=== PATIENT | female | born 1930 | race Caucasian/White ===

== ENCOUNTER 2017-02-16 00:55 | Inpatient (IN) | payer MEDICARE, BC ==
[~2017-02-16] VITALS: Ht 170.2 cm; Wt 76.6 kg
[2017-02-16] VITALS (24 sets, daily range): BP systolic 72–103; BP diastolic 35–64
[~2017-02-16 00:55] MED LIST: ACCUPRIL10 MG PO; ALBUTEROL S2.5 MG/.5 IN; ALLEGRA180 M1 PO; ALLEGRA180 MG OR; ANTIVERT OR; BACTRIM DS1 TAB PO; BISACODYL5 MG PO; CALCIUM500 MG OR; CETIRIZINE10 MG PO; CIPRO500 MG PO; CIPROFLOXACN500 MG PO; COUMADIN4 MG PO; COUMADIN5 MG OR; COUMADIN7.5 MG OR; COZAAR25 MG PO; CYCLOBENZAPR10 MG PO; DOCUSATE CAL240 MG PO; DULCOLAX5 MG OR; FERRAPLUS 90 PO; FLUARIX QUADRIV1 IN1 IM; FLUARIX QUADRIV1 INJ IM; FLUZONE SPLT1 M1 IM; FLUZONE1 M1 IM; FOLIC ACID800 MCG OR; FOSAMAX5 MG OR; FUROSEMIDE40 MG PO; GABAPENTIN100 MG PO; GABAPENTIN300 MG PO; IRON325 M1 PO; K-DUR/KLOR-CON10 MEQ PO; KEFLEX500 MG PO; KLOR-CON 1010 MEQ PO; LASIX 20 MG TAB20 MG PO; LASIX 20 MG20 MG/TAB PO; LASIX 40 MG TAB40 MG; LASIX 40 MG TAB40 MG PO; LEVAQUIN500 MG PO; LEVOTHYROXIN100 MC1 PO; LEVOTHYROXIN112 MC1 PO; LEVOTHYROXIN125 MC1 PO; LEVOTHYROXIN125 MCG PO; LEVOTHYROXIN150 MC1 PO; LEVOTHYROXIN50 MC1 PO; LEVOXYL125 MCG PO; LEVOXYL137 MCG OR; LIDODERM5 % EX; LIPITOR20 MG PO; LORTAB 5/3255 MG PO; LOSARTAN POT50 MG PO; LUMIGAN0.01 % OP; MAGNESIUM500 M3 PO; MECLIZINE25 MG PO; MEDDOSEPAK PO; MELATONIN5 MG PO; METOPROLOL50 MG OR; MIRALAX3350 NF PO; NEURONTIN100 MG PO; NORVASC2.5 MG PO; PAROXETINE HCL10 MG PO; PAROXETINE10 MG PO; PEPCID20 MG PO; PNEUMOVAX 23 IM; POT CHLORIDE10 ME1 PO; POTASSI19 XX; PRILOSEC20 MG/CAP PO; PROAIR HFA IN; RESTORIL15 MG PO; ROBAXIN-750750 MG PO; STOOL SOFTEN1 TAB OR; STOOL SOFTENER100 MG PO; SYMBICORT1 AE1 IN; SYNTHROID150 MCG PO; TEMAZEPAM15 MG PO; TRAMADOL HCL50 MG PO; TRILEPTAL300 M1 OR; TYLENOL # 31 TA1 PO; TYLENOL 500MG TAB PO; VITAMIN B-121000 MC1 OR; VITAMIN B-121000 MCG PO; VITAMIN D2000 UNIT PO; VITAMIN D32000 UNI2 PO; VITAMIN D32000 UNIT OR; WARFARIN SODIUM5 MG PO; WARFARIN5 MG PO; WARFARIN7.5 MG PO; ZANAFLEX2 MG PO; ZANTAC150 M1 PO; ZANTAC150 MG OR; ZANTAC25 MG OR; ZITHROMAX250 MG PO; [UNRECOGNIZED DRUG - REMARK] PO
[2017-02-16 01:21] LABS: HEMATOCRIT 35.4 % (37.0-47.0); HEMOGLOBIN 11.6 g/dl (12.0-16.0); IMMATURE GRANULOCYTES 0.3 % (0.0-1.0); MEAN CELL VOLUME 103.2 fL CALC (80.0-100.0); MEAN CORPUSCULAR HGB 33.8 pG CALC (26.0-32.0); MEAN CORPUSCULAR HGB CONC 32.8 g/L CALC (32.0-36.0); NEUT# 8.93 thou/uL (2.00-7.15); RED BLOOD COUNT 3.43 mill/uL (4.20-5.60); RED CELL DISTRI WIDTH 15.4 % (11.5-15.5)
[2017-02-16 01:29] LABS: ALBUMIN 3.1 g/dL (3.2-5.0); ALKALINE PHOSPHATASE 64 u/l (38-126); ANION GAP 13 (6-22 (CALC)); BILIRUBIN, TOTAL 2.5 mg/dL (0.0-1.4); BUN 21 mg/dL (8-23); BUN/CREATININE RATIO 25 (12-20 (CALC)); CALCIUM 8.3 mg/dL (8.4-10.2); CARBON DIOXIDE 26 mmol/l (22-30); CHLORIDE 106 mmol/l (95-108); CREATININE 0.8 mg/dL (0.5-1.0); GFR > 60 ML/MIN (>=60 (CALC)); GFR FOR AFR.AMER. > 60 ML/MIN (>=60 (CALC)); GLUCOSE 78 mg/dL (82-115); POTASSIUM 4.1 mmol/l (3.5-5.1); SGOT/AST 23 u/l (9-36); SGPT/ALT 24 u/l (11-66); SODIUM 140 mmol/l (137-146); TOTAL PROTEIN 6.4 g/dL (6.3-8.2)
[2017-02-16] MEDS ORDERED: JANTOVEN3 MG PO (01:39)
[2017-02-16 01:41] LABS: MYOGLOBIN 234 ng/mL (0 - 62)
[2017-02-16 01:42] LABS: URINE BLOOD DIPSTICK TRACE-INTACT (NEGATIVE); URINE CLARITY SLIGHT CLOUDY; URINE COLOR YELLOW; URINE GLUCOSE - DIPSTICK NEGATIVE (NEGATIVE); URINE KETONE TRACE mg/dL (NEGATIVE); URINE LEUK ESTERASE NEGATIVE (NEGATIVE); URINE NITRITE - DIPSTICK NEGATIVE (Negative); URINE PH 5.5 (4.5-8.0); URINE PROTEIN - DIPSTICK 30 mg/dL (NEG-TRACE); URINE SPECIFIC GRAVITY >=1.030
[2017-02-16] MEDS ORDERED: VITAMIN D32000 UNIT PO (01:42)
[2017-02-16] MEDS ORDERED: IRON45 MG PO (01:44)
[2017-02-16 01:46] LABS: URINE BILIRUBIN - DIPSTICK NEGATIVE (NEGATIVE)
[2017-02-16] MEDS ORDERED: PROAIR HFA108 MCG/AC IN (01:46)
[2017-02-16 01:55] LABS: URINE BACTERIA MANY hpf; URINE RBC 0-2 RBC/hpf (0-5); URINE SQUAMOUS EPITHELIAL CELL RARE EPI/hpf (0-FEW)
[2017-02-16 05:10] LABS: ACT PARTIAL THROMBO TIME 37.6 SECONDS (20.0-32.5); INTERNATIONAL NORMALIZED RATIO 2.1 RATIO (0.7-1.3); PROTHROMBIN TIME 24.2 SECONDS (9.0-12.5)
== END 2017-02-16 11:55 | disposition short-term general hospital (02) | DRG 871 ==
LOC: ED 00:55 → ED-I 04:00 → ED 04:33 → ED-I 04:34 → UNDODEPER 10:10 → ED-I 11:55
PROVIDERS: Emergency Medicine; ADMIT Internal Medicine; ATTEND Internal Medicine
PROC: 5A09357 Assistance with Respiratory Ventilation, Less than 24 Consecutive Hours, Continuous Positive Airway Pressure (ICD-10-PCS; principal; 2017-02-16)
DX: A41.9 Sepsis, unspecified organism (principal); I21.4 Non-ST elevation (NSTEMI) myocardial infarction; R65.21 Severe sepsis with septic shock; I50.32 Chronic diastolic (congestive) heart failure; L03.115 Cellulitis of right lower limb; I11.0 Hypertensive heart disease with heart failure; I48.2 Chronic atrial fibrillation; I27.2 Other secondary pulmonary hypertension; G35 Multiple sclerosis; N39.0 Urinary tract infection, site not specified; L03.116 Cellulitis of left lower limb; I25.119 Atherosclerotic heart disease of native coronary artery with unspecified angina pectoris; M19.90 Unspecified osteoarthritis, unspecified site; E03.9 Hypothyroidism, unspecified; D63.8 Anemia in other chronic diseases classified elsewhere; I65.23 Occlusion and stenosis of bilateral carotid arteries; R09.02 Hypoxemia; Z95.0 Presence of cardiac pacemaker; Z95.2 Presence of prosthetic heart valve; Z79.01 Long term (current) use of anticoagulants; Z86.79 Personal history of other diseases of the circulatory system; Z91.81 History of falling; Z87.891 Personal history of nicotine dependence
CPT/HCPCS: J0692; J1650

== ENCOUNTER 2017-03-20 02:57 | Inpatient (IN) | payer MEDICARE, BC ==
[~2017-03-20] VITALS: Ht 167.6 cm; Wt 84.0 kg
[2017-03-20] VITALS (22 sets, daily range): BP systolic 70–96; BP diastolic 30–50
[~2017-03-20 02:57] MED LIST changes: +IRON45 MG PO; +JANTOVEN3 MG PO; -LUMIGAN0.01 % OP; +LUMIGAN0.01 % OU; +PROAIR HFA108 MCG/AC IN; +VITAMIN D32000 UNIT PO
[2017-03-20] MEDS ORDERED: EQ ASPIRIN LOW81 MG PO (03:17)
[2017-03-20] MEDS ORDERED: BREO ELLIPTA 101 INH IN (03:19)
[2017-03-20] MEDS ORDERED: WARFARIN3 MG PO (03:21)
[2017-03-20] MEDS ORDERED: VITAMIN B121000 MCG PO (03:22)
[2017-03-20] MEDS ORDERED: LEVOTHYROXIN137 MCG PO (03:22)
[2017-03-20] MEDS ORDERED: NEXIUM40 M1 PO (03:25)
[2017-03-20] MEDS ORDERED: WARFARIN7.5 MG PO (03:26)
[2017-03-20 03:41] LABS: HEMATOCRIT 27.6 % (37.0-47.0); HEMOGLOBIN 8.8 g/dl (12.0-16.0); IMMATURE GRANULOCYTES 0.5 % (0.0-1.0); MEAN CELL VOLUME 104.9 fL CALC (80.0-100.0); MEAN CORPUSCULAR HGB 33.5 pG CALC (26.0-32.0); MEAN CORPUSCULAR HGB CONC 31.9 g/L CALC (32.0-36.0); NEUT# 14.79 thou/uL (2.00-7.15); RED BLOOD COUNT 2.63 mill/uL (4.20-5.60); RED CELL DISTRI WIDTH 18.1 % (11.5-15.5)
[2017-03-20 03:56] LABS: ALBUMIN 3.4 g/dL (3.2-5.0); ALKALINE PHOSPHATASE 72 u/l (38-126); ANION GAP 11 (6-22 (CALC)); BILIRUBIN, TOTAL 1.5 mg/dL (0.0-1.4); BUN 30 mg/dL (8-23); BUN/CREATININE RATIO 36 (12-20 (CALC)); CALCIUM 8.5 mg/dL (8.4-10.2); CARBON DIOXIDE 28 mmol/l (22-30); CHLORIDE 104 mmol/l (95-108); CREATININE 0.8 mg/dL (0.5-1.0); GFR > 60 ML/MIN (>=60 (CALC)); GFR FOR AFR.AMER. > 60 ML/MIN (>=60 (CALC)); GLUCOSE 89 mg/dL (82-115); POTASSIUM 4.4 mmol/l (3.5-5.1); SGOT/AST 22 u/l (9-36); SGPT/ALT 32 u/l (11-66); SODIUM 139 mmol/l (137-146); TOTAL PROTEIN 7.1 g/dL (6.3-8.2)
[2017-03-20 04:05] LABS: MYOGLOBIN 73 ng/mL (0 - 62)
[2017-03-20 04:22] LABS: INTERNATIONAL NORMALIZED RATIO 1.5 RATIO (0.7-1.3); PROTHROMBIN TIME 16.6 SECONDS (9.0-12.5)
[2017-03-20 05:01] LABS: URINE BILIRUBIN - DIPSTICK NEGATIVE (NEGATIVE); URINE BLOOD DIPSTICK NEGATIVE (NEGATIVE); URINE CLARITY CLEAR; URINE COLOR YELLOW; URINE GLUCOSE - DIPSTICK NEGATIVE (NEGATIVE); URINE KETONE NEGATIVE (NEGATIVE); URINE LEUK ESTERASE NEGATIVE (NEGATIVE); URINE NITRITE - DIPSTICK NEGATIVE (Negative); URINE PH 5.5 (4.5-8.0); URINE PROTEIN - DIPSTICK NEGATIVE (NEG-TRACE); URINE SPECIFIC GRAVITY 1.025
[2017-03-20 09:52] LABS: HEMATOCRIT 22.8 % (37.0-47.0); HEMOGLOBIN 7.2 g/dl (12.0-16.0); IMMATURE GRANULOCYTES 1.2 % (0.0-1.0); MEAN CELL VOLUME 104.6 fL CALC (80.0-100.0); MEAN CORPUSCULAR HGB CONC 31.6 g/L CALC (32.0-36.0); NEUT# 17.48 thou/uL (2.00-7.15); RED BLOOD COUNT 2.18 mill/uL (4.20-5.60)
[2017-03-20 21:49] LABS: URINE BLOOD DIPSTICK LARGE (NEGATIVE); URINE COLOR YELLOW; URINE GLUCOSE - DIPSTICK NEGATIVE (NEGATIVE); URINE KETONE NEGATIVE (NEGATIVE); URINE LEUK ESTERASE TRACE (NEGATIVE); URINE NITRITE - DIPSTICK NEGATIVE (Negative); URINE PROTEIN - DIPSTICK 30 mg/dL (NEG-TRACE); URINE SPECIFIC GRAVITY >=1.030
[2017-03-20 21:49] LABS: HEMOGLOBIN 7.5 g/dl (12.0-16.0); IMMATURE GRANULOCYTES 0.5 % (0.0-1.0); MEAN CELL VOLUME 102.7 fL CALC (80.0-100.0); MEAN CORPUSCULAR HGB 33.5 pG CALC (26.0-32.0); MEAN CORPUSCULAR HGB CONC 32.6 g/L CALC (32.0-36.0); NEUT# 9.63 thou/uL (2.00-7.15); RED BLOOD COUNT 2.24 mill/uL (4.20-5.60); RED CELL DISTRI WIDTH 19.2 % (11.5-15.5)
[2017-03-20 21:51] LABS: URINE BILIRUBIN - DIPSTICK SMALL (NEGATIVE); URINE CLARITY CLOUDY
[2017-03-20 21:55] LABS: URINE RBC TNTC RBC/hpf (0-5); URINE SQUAMOUS EPITHELIAL CELL FEW EPI/hpf (0-FEW)
[2017-03-20 22:09] LABS: ANION GAP 11 (6-22 (CALC)); BUN 38 mg/dL (8-23); BUN/CREATININE RATIO 39 (12-20 (CALC)); CALCIUM 7.5 mg/dL (8.4-10.2); CARBON DIOXIDE 26 mmol/l (22-30); CHLORIDE 103 mmol/l (95-108); GFR 52 ML/MIN (>=60 (CALC)); GFR FOR AFR.AMER. > 60 ML/MIN (>=60 (CALC)); GLUCOSE 96 mg/dL (82-115); POTASSIUM 4.4 mmol/l (3.5-5.1); SODIUM 136 mmol/l (137-146)
[2017-03-21] VITALS (32 sets, daily range): BP systolic 88–134; BP diastolic 36–63
[2017-03-21 08:17] LABS: HEMATOCRIT 29.9 % (37.0-47.0); MEAN CORPUSCULAR HGB 33.1 pG CALC (26.0-32.0); MEAN CORPUSCULAR HGB CONC 33.4 g/L CALC (32.0-36.0); RED BLOOD COUNT 3.02 mill/uL (4.20-5.60); RED CELL DISTRI WIDTH 18.8 % (11.5-15.5)
[2017-03-21 08:44] LABS: ANION GAP 12 (6-22 (CALC)); BUN 36 mg/dL (8-23); BUN/CREATININE RATIO 41 (12-20 (CALC)); CALCIUM 8.2 mg/dL (8.4-10.2); CARBON DIOXIDE 24 mmol/l (22-30); CHLORIDE 105 mmol/l (95-108); CREATININE 0.9 mg/dL (0.5-1.0); GFR 59 ML/MIN (>=60 (CALC)); GFR FOR AFR.AMER. > 60 ML/MIN (>=60 (CALC)); GLUCOSE 91 mg/dL (82-115); POTASSIUM 4.2 mmol/l (3.5-5.1); SODIUM 137 mmol/l (137-146)
[2017-03-21 22:49] LABS: IMMATURE GRANULOCYTES 0.4 % (0.0-1.0); MEAN CELL VOLUME 100.6 fL CALC (80.0-100.0); MEAN CORPUSCULAR HGB 32.5 pG CALC (26.0-32.0); MEAN CORPUSCULAR HGB CONC 32.3 g/L CALC (32.0-36.0); NEUT# 7.85 thou/uL (2.00-7.15); RED BLOOD COUNT 3.08 mill/uL (4.20-5.60); RED CELL DISTRI WIDTH 18.7 % (11.5-15.5)
[2017-03-22] VITALS (26 sets, daily range): BP systolic 75–129; BP diastolic 35–63
[2017-03-22 05:12] LABS: HEMATOCRIT 31.8 % (37.0-47.0); HEMOGLOBIN 10.4 g/dl (12.0-16.0); IMMATURE GRANULOCYTES 0.3 % (0.0-1.0); MEAN CELL VOLUME 100.6 fL CALC (80.0-100.0); MEAN CORPUSCULAR HGB 32.9 pG CALC (26.0-32.0); MEAN CORPUSCULAR HGB CONC 32.7 g/L CALC (32.0-36.0); NEUT# 7.45 thou/uL (2.00-7.15); RED BLOOD COUNT 3.16 mill/uL (4.20-5.60); RED CELL DISTRI WIDTH 18.3 % (11.5-15.5)
[2017-03-22 05:14] LABS: ANION GAP 14 (6-22 (CALC)); BUN 36 mg/dL (8-23); BUN/CREATININE RATIO 43 (12-20 (CALC)); CALCIUM 8.2 mg/dL (8.4-10.2); CARBON DIOXIDE 23 mmol/l (22-30); CHLORIDE 106 mmol/l (95-108); CREATININE 0.8 mg/dL (0.5-1.0); GFR > 60 ML/MIN (>=60 (CALC)); GFR FOR AFR.AMER. > 60 ML/MIN (>=60 (CALC)); GLUCOSE 91 mg/dL (82-115); POTASSIUM 4.1 mmol/l (3.5-5.1); SODIUM 140 mmol/l (137-146)
== END 2017-03-22 14:00 | disposition short-term general hospital (02) | DRG 378 ==
LOC: ED 02:57 → ED-I 05:13 → ED 05:31 → ICU 05:32 → MS2 05:32 → ICU 06:10 → MS2 06:10 → ICU 14:05
PROVIDERS: Emergency Medicine; ADMIT Internal Medicine; ATTEND Internal Medicine
PROC: 30233N1 Transfusion of Nonautologous Red Blood Cells into Peripheral Vein, Percutaneous Approach (ICD-10-PCS; principal; 2017-03-20)
PROC: 30233K1 Transfusion of Nonautologous Frozen Plasma into Peripheral Vein, Percutaneous Approach (ICD-10-PCS; 2017-03-20)
PROC: 30233K1 Transfusion of Nonautologous Frozen Plasma into Peripheral Vein, Percutaneous Approach (ICD-10-PCS; 2017-03-20)
PROC: 0T9B70Z Drainage of Bladder with Drainage Device, Via Natural or Artificial Opening (ICD-10-PCS; 2017-03-20)
DX: K92.2 Gastrointestinal hemorrhage, unspecified (principal); D62 Acute posthemorrhagic anemia; R57.9 Shock, unspecified; R78.81 Bacteremia; E03.9 Hypothyroidism, unspecified; I10 Essential (primary) hypertension; D69.6 Thrombocytopenia, unspecified; I48.2 Chronic atrial fibrillation; M19.90 Unspecified osteoarthritis, unspecified site; Z66 Do not resuscitate; Z95.2 Presence of prosthetic heart valve; Z95.0 Presence of cardiac pacemaker; Z87.891 Personal history of nicotine dependence; Z79.01 Long term (current) use of anticoagulants
CPT/HCPCS: P9016; S0164

== ENCOUNTER 2017-03-30 13:34 | Inpatient (IN) | payer MEDICARE, BC ==
[~2017-03-30] VITALS: Ht 167.6 cm; Wt 85.4 kg
[2017-03-30] VITALS (12 sets, daily range): BP systolic 94–152; BP diastolic 43–62
[~2017-03-30 13:34] MED LIST changes: +BREO ELLIPTA 101 INH IN; +EQ ASPIRIN LOW81 MG PO; +LEVOTHYROXIN137 MCG PO; +NEXIUM40 M1 PO; +VITAMIN B121000 MCG PO; +WARFARIN3 MG PO
--- NOTE | 2017-03-30 13:34 | NUR ---
PT TO ROOM VIA EMS
--- NOTE | 2017-03-30 13:45 | NUR ---
PATIENT RIGHT UPPER EXTREMITY HAS NOTED DARK PURPLE BRUISING DISTAL TO THE WRIST. NAIL BEDS ARE DUSKY IN COLOR, CAPILARY REFILL <2, HAND IS COOL TO THE TOUCH. RADIAL PULSES STRONG AND EQUAL.
--- NOTE | 2017-03-30 14:19 | NUR ---
PATIENT DENIES ANY PAIN OR SOB AT THIS TIME. SAO2 94% ON 2 L NC. WILL CONTINUE TO MONITOR.
[2017-03-30 14:28] LABS: HEMATOCRIT 31.4 % (37.0-47.0); HEMOGLOBIN 9.5 g/dl (12.0-16.0); IMMATURE GRANULOCYTES 0.6 % (0.0-1.0); MEAN CELL VOLUME 109.8 fL CALC (80.0-100.0); MEAN CORPUSCULAR HGB 33.2 pG CALC (26.0-32.0); MEAN CORPUSCULAR HGB CONC 30.3 g/L CALC (32.0-36.0); NEUT# 5.57 thou/uL (2.00-7.15); RED BLOOD COUNT 2.86 mill/uL (4.20-5.60); RED CELL DISTRI WIDTH 17.3 % (11.5-15.5)
[2017-03-30 14:29] LABS: URINE BILIRUBIN - DIPSTICK NEGATIVE (NEGATIVE); URINE BLOOD DIPSTICK NEGATIVE (NEGATIVE); URINE CLARITY CLEAR; URINE COLOR YELLOW; URINE GLUCOSE - DIPSTICK NEGATIVE (NEGATIVE); URINE KETONE NEGATIVE (NEGATIVE); URINE LEUK ESTERASE NEGATIVE (NEGATIVE); URINE NITRITE - DIPSTICK NEGATIVE (Negative); URINE PH 5.5 (4.5-8.0); URINE PROTEIN - DIPSTICK NEGATIVE (NEG-TRACE); URINE SPECIFIC GRAVITY 1.025; URINE UROBILINOGEN - DIPSTICK 0.2 E.U./dL (0.2)
[2017-03-30 14:45] LABS: ALBUMIN 3.2 g/dL (3.2-5.0); ALKALINE PHOSPHATASE 62 u/l (38-126); AMYLASE 52 u/l (30-110); ANION GAP 10 (6-22 (CALC)); BILIRUBIN, TOTAL 0.8 mg/dL (0.0-1.4); BUN 22 mg/dL (8-23); BUN/CREATININE RATIO 28 (12-20 (CALC)); CALCIUM 9.2 mg/dL (8.4-10.2); CARBON DIOXIDE 35 mmol/l (22-30); CHLORIDE 101 mmol/l (95-108); CREATININE 0.8 mg/dL (0.5-1.0); GFR > 60 ML/MIN (>=60 (CALC)); GFR FOR AFR.AMER. > 60 ML/MIN (>=60 (CALC)); GLUCOSE 106 mg/dL (82-115); LIPASE 158 u/l (23-300); POTASSIUM 4.5 mmol/l (3.5-5.1); SGOT/AST 19 u/l (9-36); SGPT/ALT 16 u/l (11-66); SODIUM 142 mmol/l (137-146); TOTAL PROTEIN 7.1 g/dL (6.3-8.2)
[2017-03-30 14:57] LABS: MYOGLOBIN 53 ng/mL (0 - 62)
--- NOTE | 2017-03-30 15:00 | NUR ---
ASSISTED PATIENT TO BED SIDE COMMODE. PATIENT ABLE TO TRANSFER WITH MINIMAL ASSIST. SAO2 98% ON 2L NC.
[2017-03-30 15:30] LABS: PROTHROMBIN TIME 11.2 SECONDS (9.0-12.5)
--- NOTE | 2017-03-30 15:30 | NUR ---
PATIENT ASSISTED TO BED SIDE COMMODE WITH MINIMAL ASSISTANCE. PATIENT VOIDED 150 MLS OF DARK YELLOW URINE. PATIENT DENIES ANY OTHER NEEDS AT THIS TIME. WILL CONTINTUE TO MONITOR.
[2017-03-30] MEDS ORDERED: LASIX 40 MG40 MG/TAB PO (15:49)
[2017-03-30] MEDS ORDERED: [UNRECOGNIZED DRUG - OTHER] PO (15:55)
[2017-03-30] MEDS ORDERED: SYMBICORT1 AE1 IN (15:56)
[2017-03-30] MEDS ORDERED: CEFAZOLIN1 GM IV (15:57)
--- NOTE | 2017-03-30 16:00 | NUR ---
PATIENT REPORTING TIGHTNESS AROUND FINGERS IN THE RIGHT HAND. CAP REFILL <2, HANDS COOL TO THE TOUCH AND RADIAL PULSE STRONG AND EQUAL. NAIL BEDS HAVE CONTINUED BUISH TINT. WARM BLANKET WRAPPED AROUND HANDS. PATIENT DENIES ANY OTHER NEEDS AT THIS TIME. WILL CONTINUE TO MONITOR.
--- NOTE | 2017-03-30 16:24 | NUR ---
DR GILLILAND AT BEDSIDE.
--- NOTE | 2017-03-30 17:00 | NUR ---
PATIENT RESTING COMFORTABLY IN STRETCHER. INCONTINENT OF URINE. PATIENT SA02 96% ON 2L NC. WILL CONTINUE TO MONITOR. PATIENT AWARE OF PENDIG ADMISSION.
--- NOTE | 2017-03-30 17:25 | NUR ---
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
--- NOTE | 2017-03-30 17:25 | NUR ---
PATIENT REPORT GIVEN TO EMILY DOMÍNGUEZ.
--- NOTE | 2017-03-30 17:40 | NUR ---
Admission Note Report Given to: EMILY DOMÍNGUEZ Transported by: Wheelchair X Stretcher Transported with: X Nurse Transporter X Patent IV X O2 X Courtesy Clerk
--- NOTE | 2017-03-30 18:18 | NUR ---
PT RESTING NO CHANGE FROM PREVIOUS AWAITING PTT RESULTS TO STRAT HEPARIN GTT PER PROTOCOL.
--- NOTE | 2017-03-30 18:51 | NUR ---
[facility] called per typewriter ribbon winder in regards to Heparin bolus; PTT reviewed;
--- NOTE | 2017-03-30 19:17 | NUR ---
pt awake in bed; no distress noted; pt offers no complaints at this time; assessment completed; pt alert and oriented; denies pain; no n/v noted; resp even and unlabored; lungs clear; skin color pale; o2 per nc at 2L; no cough noted; hr irreg; weak radial and pedal pulses; radial and pedal pulses verified via doppler; paced/pvc on monitor; 3-4+ generalized edema noted throughout body; abd soft with bs present; no bm noted per residential mortgage underwriter; assist to bsc/very wk gait noted; voiding clear yellow urine without complication; midline intact to nel; flushed anf patent; no redness or edema noted at site; midline drsh cdi; dressing noted to mid/upper back cdi; unable to assess wound; discoloration noted to bilat lower legs; edema noed to bue worse to right arm; cap refill sluggish; finger tips callie appearing to right hand; pt with complaints of heel tenderness; feet floated on pillows; plan of care/ heparin gtt explained; pt encouraged to use call light; will continue to monitor closely
--- NOTE | 2017-03-30 19:35 | NUR ---
heparin bolus verified per chief writer; calculations correct; heparin 4000 units administered as per protocol; heparin gtt initiated at 800 units/hr = (12 units/kg/hr); pt calculated as 67kg; will continue to monitor
--- NOTE | 2017-03-30 20:15 | NUR ---
resting in bed with eyes closed; no distress noted; resp even and unlabored; o2 per nc; paced on monitor; will continue to monitor
--- NOTE | 2017-03-30 21:00 | NUR ---
son Frank called this commercial underwriter; update given; son inquiring about abt; son is upset pt has missed 1400 dose of antibiotic; family assured commercial underwriter will contact MD in regards to medication; son states if abt "is not reordered he will pe moving her out of here"; again son reassured commercial underwriter will contact
--- NOTE | 2017-03-30 21:20 | NUR ---
call received from [facility]; staff states son called their facility demanding antibiotic record be sent to [facility]; son requesting [employer] staff call this commercial lines underwriter for antibiotics to be re-ordered;
--- NOTE | 2017-03-30 21:25 | NUR ---
call received from Delfina Roberts, caregiver; update given; Delfina states son in attempting to get in contact with Dr Kolb; Delfina request to be notified with any changes; will continue to monitor
--- NOTE | 2017-03-30 21:50 | NUR ---
Pharmacy called per fiction writer in regards to Ancef order; states pt has a PCN allergy; pharmacy informed, this is a continued medication/ pt has received med and tolerated; will continue to monitor
--- NOTE | 2017-03-30 22:13 | NUR ---
resting in bed with eyes closed; no distress noted; resp even and unlabored; easily arousable; offers no complaints; heparin gtt cont per protocol; o2 per nc; paced on monitor; call light within reach; will continue to monitor
--- NOTE | 2017-03-30 22:53 | NUR ---
taylor Marie called this mortgage loan underwriter inquiring about antibiotic; update give; informed to has received 10pm dose and abt will continue q8 hrs as ordered; appreciative; will continue to monitor
[2017-03-31] VITALS (20 sets, daily range): BP systolic 101–166; BP diastolic 42–70
--- NOTE | 2017-03-31 00:05 | NUR ---
resting with eyes closed; no distress noted; pt easily aroused; bsc offered with acceptance; weakness noted; pt requesting additional staff to "get her up"; after much encouragement, pt able to assist self to side of bed; voiding clear yellow urine; drippling noted; small urinary incont; pericare per pt; assist back to bed; pt requesting "facemask"; states i'm a mouth breather; RT notified; pt requesting this policy writer to remove her glasses; policy writer encourages pt to remove her own glasses (no limited mobility noted to upper extremities), pt then states "I want you to do it"; after educating pt to do as much as she can for self pt removes her own glasses; deny pain; iv patent; heparin gtt cont at 800 units/hr; will continue to monitor
--- NOTE | 2017-03-31 00:27 | NUR ---
28% VM intact as per pt request;
--- NOTE | 2017-03-31 01:05 | NUR ---
tanbark laborer at bedside
--- NOTE | 2017-03-31 01:41 | NUR ---
PTT therapeutic at 52.7; heparin gtt cont at 800 units/hr; will continue to monitor
--- NOTE | 2017-03-31 02:09 | NUR ---
resting with eyes closed; no distress noted; paced on monitor; will continue to monitor
--- NOTE | 2017-03-31 04:30 | NUR ---
resting with eyes closed; no distress noted; resp even and unlabored; easily aroused; assist yo bsc; voiding without difficulty; weight obtaind at 85.4 kg; back to bed with monitoring attachments connected; call light within reach; will continue to monitor
--- NOTE | 2017-03-31 06:04 | NUR ---
resting with eyes closed; no distress noted; VM intact; iv patent; heparin gtt cont at 800 units/hr; bed in lowest position; call light within reach
--- NOTE | 2017-03-31 07:03 | NUR ---
resting with eyes closed; no distress noted; pt has refused repositioning throughout the night; report given to Kaleigh Duncan
--- NOTE | 2017-03-31 07:25 | NUR ---
PT ALERT AND ORIENTED RESTING IN BED, WITH 28% VENTI MASK IN PLACE PER PT REQUEST DURING NIGHT RELATED TO "MOUTH BREATHING" PT O2 DEPENDENT AT HOME WELL (NOT NEW PER PT) AM ASSESSMENT COMPLETED SEE INTERVENTIONS, PT HAS PITTING EDEMA TO BILATERAL LOWER EXTREMETIES WITH ELEPHANT LIKE SKIN NOTED, EDEMA IS PITTING UP INTO HIP AREA, EDEMA ALSO NOTED TO BILATERAL LOWER ARMS, BP STABLE, AFEBRILE, DRESSING TO MID UPPER BACK INTACT, R LOWER ARM SLIGHTLY DUSKY IN COLOR MUCH IMPROVED OVER YESTERDAY, PPPB (ALTHOUGH WEAK), WITH RADIAL PULSES [place], MIDLINE NOTED IN R UPPER ARM (PLACED PRIOR TO ARRIVAL TO THIS HOSPITAL) DRESSING CLEAN DRY AND INTACT, SITE W/O S/S OF INFECTION, SAFETY MEASURES REINFORCED, REPOSITIONED FOR COMFORT, CALL LOPEZ WITHIN REACH TELE READING PACED RATE 68, EDUCATED REGARDING FREQUENCY OF VS, MEDICATIONS (HEPARIN GTT) REASON FOR ADMINSTRATION, EXPECTATIONS AND POSSIBLE SIDE EFFECTS AND ALL QUESTIONS ANSWERED, CALL LOPEZ WITHIN REACH, WILL CONTINUE TO MONITOR.
[2017-03-31 07:48] LABS: MEAN CELL VOLUME 107.9 fL CALC (80.0-100.0); MEAN CORPUSCULAR HGB 33.2 pG CALC (26.0-32.0); MEAN CORPUSCULAR HGB CONC 30.8 g/L CALC (32.0-36.0); RED BLOOD COUNT 2.41 mill/uL (4.20-5.60); RED CELL DISTRI WIDTH 17.4 % (11.5-15.5)
--- NOTE | 2017-03-31 08:10 | NUR ---
PT PLACED ON NC 2L AND REPOSITIONED FOR AM MEAL, SET UP ASSIST PROVIDED, WILL CONTINUE TO MONITOR.
[2017-03-31 08:20] LABS: ANION GAP 9 (6-22 (CALC)); BUN 23 mg/dL (8-23); BUN/CREATININE RATIO 38 (12-20 (CALC)); CALCIUM 8.8 mg/dL (8.4-10.2); CARBON DIOXIDE 33 mmol/l (22-30); CHLORIDE 102 mmol/l (95-108); CREATININE 0.6 mg/dL (0.5-1.0); GFR > 60 ML/MIN (>=60 (CALC)); GFR FOR AFR.AMER. > 60 ML/MIN (>=60 (CALC)); GLUCOSE 78 mg/dL (82-115); POTASSIUM 4.8 mmol/l (3.5-5.1); SODIUM 139 mmol/l (137-146)
--- NOTE | 2017-03-31 08:23 | NUR ---
PT SPEAKING ON PHONE WITH SON.
--- NOTE | 2017-03-31 08:40 | NUR ---
PT REPOSITIONED FOR COMFORT, CALL LOPEZ WITHIN REACH, WILL CONTINUE TO MONITOR.
--- NOTE | 2017-03-31 09:27 | NUR ---
JUAN J AT BEDSIDE TO DELIVER PT'S BOOK FROM "[facility]RE[facility]", PT SPEAKING ON PHONE, CALL LOPEZ WITHIN REACH
--- NOTE | 2017-03-31 09:50 | NUR ---
HEPARIN BOLUS GIVEN ORDERED AND GTT ADJUSTED PER PROTOCOL, NEXT PTT ORDERED CALL JESSICA SALINAS, PT READING A BOOK AT THIS TIME, CALL LOPEZ WITHIN REACH.
--- NOTE | 2017-03-31 09:59 | NUR ---
PT RESTING IN BED, ALERT AND ORIENTED, WITH NO CHAGNE TO R HAND REMAINS IMPROVED STILL SLIGHTLY DUSKY WITH CAP REFILL IMPROVED BUT STILL PROLONGED, CALL LOPEZ WITHIN REACH.
--- NOTE | 2017-03-31 11:10 | NUR ---
PT RESTING IN BED, DECLINES REPOSITION, EDUCATED REGARDING THE IMPORTANCE OF PRESSURE RELIEF TO PREVENT WORSENING/PREVENTING FURTHER BREAKDOWN, VERBALIZES UNDERSTANDING, BUT CONTINUES TO DECLINE. WILL CONTINUE TO MONITOR.
--- NOTE | 2017-03-31 11:35 | NUR ---
PT OOB TO BSC, CONTINENT OF 250 ML KEVIN URINE WITH SEDIMENT NOTED, PT HAS VERY EDEMATOUS LUIS AREA, LUIS CARE PROVIDED AND LINENS ON BED CHANGED, PT REQUESTS TO SIT ON BSC TO EAT AFTERNOON MEAL, RECLINER OFFERED PT STATES AFTER SHE IS DONE EATING SHE WILL MOVE TO THAT CHAIR, CALL LOPEZ WITHIN REACH
--- NOTE | 2017-03-31 12:50 | NUR ---
PT STOOD AND TRANSFERRED TO RECLINER AT BEDSIDE, COMFORT MEASURES PROVIDED, TOELRATED AFTERNOON MEAL WELL WIHT GOOD INTAKE, CALL LOPEZ WITHIN REACH.
--- NOTE | 2017-03-31 15:01 | NUR ---
PT OUT OF RECLINER TO BSC, CONTINENT OF URINE, LUIS CARE PROVIDED AND BACK TO BED WITH MOD ASSIST, CALL LOPEZ WITHIN REACH
--- NOTE | 2017-03-31 16:24 | NUR ---
PT RESTING IN BED, DOZING INTERMITTENLY, CALL LOPEZ WITHIN REACH, WILL CONTINUE TO MONITOR
--- NOTE | 2017-03-31 17:43 | NUR ---
HEPARIN GTT STOPPED PER VERBAL ORDER , SET UP ASSIST PROVIDED FOR PM MEAL, CALL LOPEZ WITHIN REACH
--- NOTE | 2017-03-31 18:02 | NUR ---
SET UP ASSIST PROVIDED FOR PM MEAL, CALL LOPEZ WITHIN REACH
--- NOTE | 2017-03-31 18:50 | NUR ---
REPORT FROM EMILY DOMÍNGUEZ. ASSUMED PT. CARE.
--- NOTE | 2017-03-31 19:50 | NUR ---
PT. FOUND AWAKE, ALERT, ORIENTED X 3. SKIN WARM AND DRY. SUSANNAH. RESPS EVEN AND UNLABORED. VSS. PT. READING AT THIS TIME. DENIES COMPLAINTS OF PAIN OR NEED. CLEAR UPPERS BILAT, LOWERS DIMINISHED. BILAT UPPER AND LOWER EXT EDEMA 3+ NOTED. LOWER EXT SCALY, DISCOLORED. PT. UPDATED ON PLAN OF CARE. DISTIL PULSES PRESENT THROUGHOUT. CALL LIGHT REMAINS WITHIN REACH. PLAN OF CARE DISCUSSED WITH PATIENT.
--- NOTE | 2017-03-31 20:59 | NUR ---
PT. ASSISTED TO BEDSIDE COMMODE AND BACK TO BED. PT. VOIDED ONLY 200 CC OF CONCENTRATED URINE. PT. ASSISTED BACK TO BED WITH MODERATE ASSIST. REPOSITIONED FOR COMFORT. CALL LIGHT PLACED BACK WITHIN REACH. WILL CONTINUE TO MONITOR.
--- NOTE | 2017-03-31 22:02 | NUR ---
IV ABX INFUSING WITHOUT SX OF INFILTRATION OR EXTRAVASATION. WILL CONTINUE TO MONITOR.
[2017-04-01] VITALS (7 sets, daily range): BP systolic 110–192; BP diastolic 46–89
--- NOTE | 2017-04-01 00:05 | NUR ---
PT. RESTING IN BED WITH EYES CLOSED. VENTMASK IN PLACE AT THIS TIME PER PT. REQUEST SINCE SHE IS A NIGHTTIME MOUTH BREATHER. BP/HR STABLE AT THIS TIME. SPO2 STABLE ON THE VENTIMASK. SONI. REMAINS WITH EDEMA TO UPPER AND LOWER EXT. WILL CONTINUE TO ASSESS.
--- NOTE | 2017-04-01 01:05 | NUR ---
PT. ASSISTED TO AND FROM BEDSIDE COMMODE. REPOSITIONED FOR COMFORT. APPROX 350 CC OF URINE OUT AT THIS TIME. SOME URINARY INCONTINENCE. UNDERPADS CHANGED AT THIS TIME. BP/HR STABLE AT THIS TIME. CALL LIGHT REMAINS WITHIN REACH.
--- NOTE | 2017-04-01 03:05 | NUR ---
PT. RESTING IN LT. SIDE IN NO DISTRESS. REMAIN RESTING WITH EYES CLOSED AND SHALLOW EVEN RESPIRATIONS. CALL LIGHT REMAINS WITHIN REACH.
[2017-04-01 05:01] LABS: HEMATOCRIT 25.4 % (37.0-47.0); HEMOGLOBIN 7.9 g/dl (12.0-16.0); MEAN CELL VOLUME 106.3 fL CALC (80.0-100.0); MEAN CORPUSCULAR HGB 33.1 pG CALC (26.0-32.0); MEAN CORPUSCULAR HGB CONC 31.1 g/L CALC (32.0-36.0); RED BLOOD COUNT 2.39 mill/uL (4.20-5.60); RED CELL DISTRI WIDTH 17.3 % (11.5-15.5)
--- NOTE | 2017-04-01 05:07 | NUR ---
PT. ASSISTED TO BEDSIDE COMMODE AND BACK TO BED AGAIN. APPROX 100 CC OUT AT THIS TIME. REPOSITIONED FOR COMFORT. PT. ASKING WHY SHE IS "STILL HERE". PT. FURTHER STATES SHE IS NOT WELL AND DOES NOT UNDERSTAND WHY SHE IS STILL ALIVE. THIS RN ENCOURAGED PT. TO EXPRESS HER FEELINGS. VITALS REMAIN STABLE AT THIS TIME. CALL LIGHT REMAINS WITHIN REACH. WILL CONTINUE TO ASSESS.
[2017-04-01 05:18] LABS: INTERNATIONAL NORMALIZED RATIO 1.1 RATIO (0.7-1.3); PROTHROMBIN TIME 11.8 SECONDS (9.0-12.5)
[2017-04-01 05:19] LABS: ANION GAP 9 (6-22 (CALC)); BUN 23 mg/dL (8-23); BUN/CREATININE RATIO 33 (12-20 (CALC)); CALCIUM 8.5 mg/dL (8.4-10.2); CARBON DIOXIDE 37 mmol/l (22-30); CHLORIDE 99 mmol/l (95-108); CREATININE 0.7 mg/dL (0.5-1.0); GFR > 60 ML/MIN (>=60 (CALC)); GFR FOR AFR.AMER. > 60 ML/MIN (>=60 (CALC)); GLUCOSE 77 mg/dL (82-115); POTASSIUM 4.4 mmol/l (3.5-5.1); SODIUM 140 mmol/l (137-146)
--- NOTE | 2017-04-01 06:04 | NUR ---
IV ANTIBIOTICS INFUSING AT THIS TIME. NO REACTIONS NOTED. PT. TOLERATED AM MEDS WITHOUT DIFFICULTIES. CALL LIGHT REMAINS WITHIN REACH AND VSS.
--- NOTE | 2017-04-01 07:45 | NUR ---
PATIENT ASSESSMENT DONE. SEE DOCUMENTAION OF INTERVENTIONS. PT ASSISTED UP TO BSC AND THEN TO CARDIAC CHAIR. PT TRANSFER WITH 1 ASSIST. GENERAL WEAKNESS. PT ALERT AND ORIENTED X 4. POC DISCUSSED. PT ATE 100% OF BREAKFAST. NO COMPLAINTS.
--- NOTE | 2017-04-01 09:00 | NUR ---
PATIENT SITTING IN CHAIR, TALKING ON PHONE. NO COMPLAINTS.
--- NOTE | 2017-04-01 10:16 | NUR ---
SPOKE WITH SON BENTLEY AT LENGTH REGARDIN PROGNOSIS, PLAN OF CARE INCLUDING HOSPICE AND D/C TODAY BACK TO REHAB.
--- NOTE | 2017-04-01 10:43 | NUR ---
PT OOB TO BSC WITH MOD ASSIST, CONTINENT OF URINE SOME URGENCY INCONTINENCE NOTED, ASSISTED WITH LUIS CARE AND BACK TO BED WITH SAME ASSIST, CALL LOPEZ WITHIN REACH
--- NOTE | 2017-04-01 11:14 | NUR ---
VENOFUR INFUSION COMPLETE PT TOLERATED W/O INCIDENT, MIDLINE FLUSHED AND PT TRASNFERRED TO WHEELCHAIR FOR TRASNPORT BACK TO [facility] ORDERED, SON BENTLEY ON PHONE WITH PATIENT EARLIER AND AWARE OF PLANNED TRANSPORT AND TIME. ALL BELONGINGS SENT WITH PATIENT
--- NOTE | 2017-04-01 11:23 | NUR ---
REPORT CALLED TO SRUTHI AT [facility].
== END 2017-04-01 11:15 | DRG 947 ==
LOC: ED 13:34 → ED-I 16:16 → ED 16:59 → ICU 17:00
PROVIDERS: Emergency Medicine; ADMIT Internal Medicine; ATTEND Internal Medicine
PROC: 3E0234Z Introduction of Serum, Toxoid and Vaccine into Muscle, Percutaneous Approach (ICD-10-PCS; principal; 2017-03-31)
DX: R60.0 Localized edema (principal); I33.0 Acute and subacute infective endocarditis; I48.2 Chronic atrial fibrillation; I11.0 Hypertensive heart disease with heart failure; I50.32 Chronic diastolic (congestive) heart failure; G35 Multiple sclerosis; B95.4 Other streptococcus as the cause of diseases classified elsewhere; Z99.81 Dependence on supplemental oxygen; I65.23 Occlusion and stenosis of bilateral carotid arteries; R78.81 Bacteremia; F32.9 Major depressive disorder, single episode, unspecified; T82.6XXD Infection and inflammatory reaction due to cardiac valve prosthesis, subsequent encounter; M19.90 Unspecified osteoarthritis, unspecified site; E03.9 Hypothyroidism, unspecified; D50.0 Iron deficiency anemia secondary to blood loss (chronic); D63.8 Anemia in other chronic diseases classified elsewhere; E78.5 Hyperlipidemia, unspecified; Y83.1 Surgical operation with implant of artificial internal device as the cause of abnormal reaction of the patient, or of later complication, without mention of misadventure at the time of the procedure; Z66 Do not resuscitate; Z95.0 Presence of cardiac pacemaker; Z23 Encounter for immunization
CPT/HCPCS: J1644; J1756

== ENCOUNTER 2017-05-23 12:46 | Inpatient (IN) | payer MEDICARE, BC ==
[~2017-05-23] VITALS: Ht 167.6 cm; Wt 77.2 kg
[2017-05-23] VITALS (8 sets, daily range): BP systolic 94–111; BP diastolic 41–53
[~2017-05-23 12:46] MED LIST changes: +CEFAZOLIN1 GM IV; +LASIX 40 MG40 MG/TAB PO; +[UNRECOGNIZED DRUG - OTHER] PO
[2017-05-23 13:28] LABS: HEMOGLOBIN 7.1 g/dl (12.0-16.0); IMMATURE GRANULOCYTES 0.7 % (0.0-1.0); MEAN CELL VOLUME 100.4 fL CALC (80.0-100.0); MEAN CORPUSCULAR HGB CONC 30.9 g/L CALC (32.0-36.0); NEUT# 14.16 thou/uL (2.00-7.15); RED BLOOD COUNT 2.29 mill/uL (4.20-5.60)
[2017-05-23 13:39] LABS: ALBUMIN 3.1 g/dL (3.2-5.0); ALKALINE PHOSPHATASE 61 u/l (38-126); ANION GAP 10 (6-22 (CALC)); BILIRUBIN, TOTAL 1.1 mg/dL (0.0-1.4); BUN 30 mg/dL (8-23); BUN/CREATININE RATIO 34 (12-20 (CALC)); CALCIUM 8.5 mg/dL (8.4-10.2); CARBON DIOXIDE 34 mmol/l (22-30); CHLORIDE 97 mmol/l (95-108); CREATININE 0.9 mg/dL (0.5-1.0); GFR 59 ML/MIN (>=60 (CALC)); GFR FOR AFR.AMER. > 60 ML/MIN (>=60 (CALC)); GLUCOSE 91 mg/dL (82-115); LIPASE 27 u/l (23-300); POTASSIUM 4.2 mmol/l (3.5-5.1); SGOT/AST 20 u/l (9-36); SGPT/ALT 24 u/l (11-66); SODIUM 137 mmol/l (137-146); TOTAL PROTEIN 6.5 g/dL (6.3-8.2)
[2017-05-23 13:51] LABS: MYOGLOBIN 204 ng/mL (0 - 62)
[2017-05-23] MEDS ORDERED: ESCITALOPRAM OX10 MG PO (14:46)
[2017-05-23] MEDS ORDERED: MULTIVITAMI1 PO (14:48)
[2017-05-23] MEDS ORDERED: KEFLEX500 MG PO (14:50)
[2017-05-23] MEDS ORDERED: PROBIOTIC PO (14:51)
[2017-05-23] MEDS ORDERED: SPIRONOLACTONE25 MG PO (14:52)
[2017-05-23] MEDS ORDERED: TYLENOL500 MG PO (14:54)
[2017-05-23 21:08] LABS: URINE BILIRUBIN - DIPSTICK NEGATIVE (NEGATIVE); URINE BLOOD DIPSTICK TRACE-INTACT (NEGATIVE); URINE GLUCOSE - DIPSTICK NEGATIVE (NEGATIVE); URINE KETONE NEGATIVE (NEGATIVE); URINE NITRITE - DIPSTICK NEGATIVE (Negative); URINE PH 7.5 (4.5-8.0); URINE PROTEIN - DIPSTICK 30 mg/dL (NEG-TRACE); URINE SPECIFIC GRAVITY 1.015
[2017-05-23 21:13] LABS: URINE CLARITY SL CLOUDY; URINE COLOR DK. YELLOW; URINE LEUK ESTERASE SMALL (NEGATIVE)
[2017-05-23 21:20] LABS: URINE AMORPH SEDIMENT MODERATE hpf (NONE-FEW); URINE BACTERIA MODERATE hpf; URINE SQUAMOUS EPITHELIAL CELL FEW EPI/hpf (0-FEW)
[2017-05-24] VITALS (8 sets, daily range): BP systolic 93–127; BP diastolic 40–67
[2017-05-24 06:11] LABS: HEMATOCRIT 28.6 % (37.0-47.0); MEAN CELL VOLUME 96.6 fL CALC (80.0-100.0); MEAN CORPUSCULAR HGB 30.4 pG CALC (26.0-32.0); MEAN CORPUSCULAR HGB CONC 31.5 g/L CALC (32.0-36.0); RED BLOOD COUNT 2.96 mill/uL (4.20-5.60); RED CELL DISTRI WIDTH 18.5 % (11.5-15.5)
[2017-05-24 06:24] LABS: CALCIUM 8.2 mg/dL (8.4-10.2); CREATININE 1.1 mg/dL (0.5-1.0); MAGNESIUM 1.8 mg/dL (1.6-2.3); POTASSIUM 4.7 mmol/l (3.5-5.1)
[2017-05-25 03:45] VITALS: BP 110/66
[2017-05-25 05:36] LABS: CREATININE 1.1 mg/dL (0.5-1.0); MAGNESIUM 1.9 mg/dL (1.6-2.3); POTASSIUM 4.5 mmol/l (3.5-5.1)
[2017-05-25 06:31] LABS: HEMATOCRIT 26.2 % (37.0-47.0); HEMOGLOBIN 8.2 g/dl (12.0-16.0); IMMATURE GRANULOCYTES 0.7 % (0.0-1.0); MEAN CORPUSCULAR HGB 30.4 pG CALC (26.0-32.0); MEAN CORPUSCULAR HGB CONC 31.3 g/L CALC (32.0-36.0); NEUT# 7.59 thou/uL (2.00-7.15); RED BLOOD COUNT 2.7 mill/uL (4.20-5.60); RED CELL DISTRI WIDTH 18.1 % (11.5-15.5)
[2017-05-25 07:11] VITALS: BP 110/60
[2017-05-25] MEDS ORDERED: KEFLEX500 M1 PO (16:45)
[2017-05-25 16:47] VITALS: BP 107/60
[2017-05-25 19:20] VITALS: BP 100/52
[2017-05-26 00:07] VITALS: BP 107/53
[2017-05-26 04:04] VITALS: BP 111/51
[2017-05-26 06:02] LABS: HEMATOCRIT 27.2 % (37.0-47.0); HEMOGLOBIN 8.4 g/dl (12.0-16.0); IMMATURE GRANULOCYTES 0.9 % (0.0-1.0); MEAN CELL VOLUME 97.5 fL CALC (80.0-100.0); MEAN CORPUSCULAR HGB 30.1 pG CALC (26.0-32.0); MEAN CORPUSCULAR HGB CONC 30.9 g/L CALC (32.0-36.0); NEUT# 7.91 thou/uL (2.00-7.15); RED BLOOD COUNT 2.79 mill/uL (4.20-5.60); RED CELL DISTRI WIDTH 17.1 % (11.5-15.5)
[2017-05-26 06:17] LABS: CALCIUM 8.3 mg/dL (8.4-10.2); CREATININE 1.1 mg/dL (0.5-1.0); MAGNESIUM 1.8 mg/dL (1.6-2.3)
[2017-05-26 08:24] VITALS: BP 99/42
[2017-05-26 11:36] VITALS: BP 103/54
[2017-05-26 15:21] VITALS: BP 100/53
[2017-05-26 18:55] VITALS: BP 105/52
[2017-05-27 00:12] VITALS: BP 109/60
[2017-05-27 04:20] VITALS: BP 111/54
[2017-05-27 05:56] LABS: HEMATOCRIT 27.7 % (37.0-47.0); HEMOGLOBIN 8.7 g/dl (12.0-16.0); MEAN CELL VOLUME 96.9 fL CALC (80.0-100.0); MEAN CORPUSCULAR HGB 30.4 pG CALC (26.0-32.0); MEAN CORPUSCULAR HGB CONC 31.4 g/L CALC (32.0-36.0); RED BLOOD COUNT 2.86 mill/uL (4.20-5.60); RED CELL DISTRI WIDTH 16.6 % (11.5-15.5)
[2017-05-27 06:01] LABS: ANION GAP 10 (6-22 (CALC)); BUN 37 mg/dL (8-23); BUN/CREATININE RATIO 41 (12-20 (CALC)); CALCIUM 8.2 mg/dL (8.4-10.2); CARBON DIOXIDE 34 mmol/l (22-30); CHLORIDE 99 mmol/l (95-108); CREATININE 0.9 mg/dL (0.5-1.0); GFR 59 ML/MIN (>=60 (CALC)); GFR FOR AFR.AMER. > 60 ML/MIN (>=60 (CALC)); GLUCOSE 95 mg/dL (82-115); MAGNESIUM 1.7 mg/dL (1.6-2.3); SODIUM 139 mmol/l (137-146)
[2017-05-27 08:31] VITALS: BP 108/51
[2017-05-27 11:03] VITALS: BP 104/54
[2017-05-27 15:38] VITALS: BP 106/50
[2017-05-27 19:03] VITALS: BP 117/58
[2017-05-28 00:05] VITALS: BP 114/58
[2017-05-28 04:23] VITALS: BP 108/52
[2017-05-28 09:00] VITALS: BP 111/48
[2017-05-28 13:17] VITALS: BP 108/58
[2017-05-28 15:58] VITALS: BP 121/57
[2017-05-28 19:05] VITALS: BP 130/59
[2017-05-29 00:14] VITALS: BP 100/50
[2017-05-29 04:20] VITALS: BP 93/40
[2017-05-29 05:40] LABS: HEMATOCRIT 29.2 % (37.0-47.0); HEMOGLOBIN 8.9 g/dl (12.0-16.0); MEAN CELL VOLUME 98.6 fL CALC (80.0-100.0); MEAN CORPUSCULAR HGB 30.1 pG CALC (26.0-32.0); MEAN CORPUSCULAR HGB CONC 30.5 g/L CALC (32.0-36.0); RED BLOOD COUNT 2.96 mill/uL (4.20-5.60); RED CELL DISTRI WIDTH 16.2 % (11.5-15.5)
[2017-05-29 05:50] LABS: BUN 29 mg/dL (8-23); BUN/CREATININE RATIO 41 (12-20 (CALC)); CALCIUM 8.5 mg/dL (8.4-10.2); CHLORIDE 95 mmol/l (95-108); CREATININE 0.7 mg/dL (0.5-1.0); GFR > 60 ML/MIN (>=60 (CALC)); GFR FOR AFR.AMER. > 60 ML/MIN (>=60 (CALC)); GLUCOSE 89 mg/dL (82-115); POTASSIUM 3.9 mmol/l (3.5-5.1); SODIUM 139 mmol/l (137-146)
[2017-05-29 05:56] LABS: ANION GAP 6 (6-22 (CALC))
[2017-05-29 06:05] LABS: CARBON DIOXIDE 42 mmol/l (22-30)
[2017-05-29 07:45] VITALS: BP 103/48
[2017-05-29 11:20] VITALS: BP 119/57
[2017-05-29] MEDS ORDERED: TRAMADOL HCL50 MG PO (13:32)
[2017-05-29 15:42] VITALS: BP 105/48
== END 2017-05-29 18:05 | disposition hospice, inpatient (51) | DRG 871 ==
LOC: ED 12:46 → ED-I 15:41 → ED 16:04 → MS2 16:05
PROVIDERS: Emergency Medicine; Nurse Practitioner Family; ADMIT Internal Medicine; ATTEND Internal Medicine
PROC: 30233N1 Transfusion of Nonautologous Red Blood Cells into Peripheral Vein, Percutaneous Approach (ICD-10-PCS; principal; 2017-05-23)
PROC: 30233N1 Transfusion of Nonautologous Red Blood Cells into Peripheral Vein, Percutaneous Approach (ICD-10-PCS; 2017-05-23)
PROC: 0T9B70Z Drainage of Bladder with Drainage Device, Via Natural or Artificial Opening (ICD-10-PCS; 2017-05-23)
DX: A41.51 Sepsis due to Escherichia coli [E. coli] (principal); I50.33 Acute on chronic diastolic (congestive) heart failure; N17.9 Acute kidney failure, unspecified; G35 Multiple sclerosis; K92.2 Gastrointestinal hemorrhage, unspecified; I48.0 Paroxysmal atrial fibrillation; D62 Acute posthemorrhagic anemia; J84.10 Pulmonary fibrosis, unspecified; L03.115 Cellulitis of right lower limb; I13.0 Hypertensive heart and chronic kidney disease with heart failure and stage 1 through stage 4 chronic kidney disease, or unspecified chronic kidney disease; L03.116 Cellulitis of left lower limb; C18.9 Malignant neoplasm of colon, unspecified; E03.9 Hypothyroidism, unspecified; I25.10 Atherosclerotic heart disease of native coronary artery without angina pectoris; M19.90 Unspecified osteoarthritis, unspecified site; F32.9 Major depressive disorder, single episode, unspecified; J44.9 Chronic obstructive pulmonary disease, unspecified; I89.0 Lymphedema, not elsewhere classified; N18.9 Chronic kidney disease, unspecified; K59.00 Constipation, unspecified; Z16.12 Extended spectrum beta lactamase (ESBL) resistance; Z51.5 Encounter for palliative care; Z66 Do not resuscitate; Z95.2 Presence of prosthetic heart valve; Z99.81 Dependence on supplemental oxygen; Z87.891 Personal history of nicotine dependence; Z95.0 Presence of cardiac pacemaker
CPT/HCPCS: G0378; J0692; J3370; P9016